=== PATIENT | male | born 1960 | race Caucasian/White ===

== ENCOUNTER → 2016-12-14 | Outpatient (CLI) | payer OTHER, MEDICARE ==
[~2016-12-14] MED LIST: AMMONIUM LACTA140 GM TP; ASPIRIN EC81 MG PO; BRILINTA90 MG PO; CARAFATE SU100 MG/ML PO; COQ-10100 MG PO; DIGOXIN250 MCG PO; FENOFIBRIC ACI135 MG PO; FLOMAX 0.4 MG0.4 MG PO; GLUCOVANCE 2.51 EACH PO; GLYBURIDE-METF1 EACH PO; HABITROL 21 MG P1 EA PO; IMDUR ER TAB 3030 MG PO; INVOKANA300 MG PO; KLOR-CON 1010 MEQ PO; LANSOPRAZOLE30 MG PO; MINITRAN1 EAC1 TD; NIACIN CR 500500 MG PO; NITROSTAT 0.40.4 MG SL; OMEGA 3 1,0001 EACH PO; PRALUENT SQ; RANEXA1000 MG PO; SPIRIVA RESPIMAT4 GM INH; TOPROL XL25 MG PO; TOPROL XL50 MG PO; VASCEPA1 GM PO; VITAMIN B-12100 MC1 PO; VITAMIN D 11000 UNIT PO; VITAMIN D2000 UNI1 PO; VITAMIN D2000 UNIT PO; VITAMIN D250000 UNIT PO; WELCHOL625 MG PO; ZOFRAN ODT 4 MG4 MG PO; [UNRECOGNIZED DRUG - OTHER] PO
== END ==
LOC: CT 15:00
DX: F17.210 Nicotine dependence, cigarettes, uncomplicated (principal); R91.8 Other nonspecific abnormal finding of lung field
CPT/HCPCS: G0297

== ENCOUNTER 2017-02-17 21:23 | Observation (INO) | payer OTHER, MEDICARE ==
[~2017-02-17] VITALS: Ht 180.3 cm; Wt 81.7 kg
[~2017-02-17 21:23] MED LIST changes: -COQ-10100 MG PO; -GLUCOVANCE 2.51 EACH PO; -IMDUR ER TAB 3030 MG PO; -PRALUENT SQ; -TOPROL XL25 MG PO; -VASCEPA1 GM PO; -VITAMIN D250000 UNIT PO
[2017-02-17 22:49] LABS: HEMOGLOBIN 16.6 gm/dl (14.0-17.5); RED BLOOD COUNT 5.34 M/UL (4.20-5.50)
[2017-02-18] MEDS ORDERED: IMDUR ER TAB 3030 MG PO (02:48)
[2017-02-18] MEDS ORDERED: VASCEPA1 GM PO (02:49)
[2017-02-18] MEDS ORDERED: WELCHOL625 MG PO (02:50)
[2017-02-18] MEDS ORDERED: COQ-10100 MG PO (03:00)
[2017-02-18] MEDS ORDERED: PRALUENT SQ (03:00)
[2017-02-19 06:15] LABS: BUN/CREATININE RATIO 20 (0-10)
[2017-02-19 06:24] LABS: HEMOGLOBIN 16.3 gm/dl (14.0-17.5); RED BLOOD COUNT 5.25 M/UL (4.20-5.50); WHITE BLOOD COUNT 6.5 K/UL (4.5-11.0)
[2017-06-17] MEDS ORDERED: IMDUR ER TAB 3030 MG PO ×2 (07:59→08:00)
[2017-06-17] MEDS ORDERED: GLUCOVANCE 2.51 EACH PO (08:02)
[2017-06-17] MEDS ORDERED: TOPROL XL25 MG PO (08:03)
[2017-06-17] MEDS ORDERED: VITAMIN D250000 UNIT PO (08:04)
== END 2017-02-19 09:30 | disposition home or self-care (01) ==
LOC: ER1 21:23 → ZEROF 23:52 → M/S 23:52
PROVIDERS: Internal Medicine; Physician Assistant; ADMIT Family Medicine
DX: R07.9 Chest pain, unspecified (principal); I25.10 Atherosclerotic heart disease of native coronary artery without angina pectoris; E78.5 Hyperlipidemia, unspecified; E78.1 Pure hyperglyceridemia; J44.9 Chronic obstructive pulmonary disease, unspecified; E11.9 Type 2 diabetes mellitus without complications; I25.2 Old myocardial infarction; E55.9 Vitamin D deficiency, unspecified; K21.9 Gastro-esophageal reflux disease without esophagitis; N40.0 Benign prostatic hyperplasia without lower urinary tract symptoms; I10 Essential (primary) hypertension; Z95.5 Presence of coronary angioplasty implant and graft; Z95.1 Presence of aortocoronary bypass graft; Z87.891 Personal history of nicotine dependence; Z79.82 Long term (current) use of aspirin; Z79.899 Other long term (current) drug therapy; Z90.49 Acquired absence of other specified parts of digestive tract; Z91.041 Radiographic dye allergy status; Z88.8 Allergy status to other drugs, medicaments and biological substances; Z88.6 Allergy status to analgesic agent
CPT/HCPCS: 36415; 71010; 78452; 80048; 80053; 80061; 80162; 82150; 82550; 82553; 82962; 83690; 83874; 83880; 84484; 85025; 85027; 93005; 93017; 99284; A9502; G0378; J2785

== ENCOUNTER → 2020-11-24 | Outpatient (CLI) | payer OTHER ==
[~2020-11-24] MED LIST changes: +COQ-10100 MG PO; +GLUCOVANCE 2.51 EACH PO; +IBUPROFEN200 MG PO; +IBUPROFEN600 MG PO; +IMDUR ER TAB 3030 MG PO; +IMDUR ER TAB 6060 MG PO; +LASIX40 MG PO; +LISINOPRIL5 MG PO; +LOPRESSOR 25 MG25 MG PO; +MACROBID 100 M100 MG PO; +NITRO-DUR1 EAC1 TOP; +PRALUENT SQ; +PREDNISONE 20 M20 MG PO; +PYRIDIUM200 MG PO; +TOPROL XL25 MG PO; +VASCEPA1 GM PO; +VITAMIN D250000 UNIT PO; +ZETIA10 MG PO
== END ==
LOC: KOH-I 11-14 15:30
DX: Z12.2 Encounter for screening for malignant neoplasm of respiratory organs (principal); F17.210 Nicotine dependence, cigarettes, uncomplicated; S22.32XA Fracture of one rib, left side, initial encounter for closed fracture; W00.9XXA Unspecified fall due to ice and snow, initial encounter
CPT/HCPCS: 71101; 71271

== ENCOUNTER → 2021-11-28 | Outpatient (CLI) | payer OTHER | LOC: KOH-I 13:20 | DX: F17.210 Nicotine dependence, cigarettes, uncomplicated (principal) | CPT/HCPCS: 71271 ==

== ENCOUNTER → 2022-01-17 | Day surgery (SDC) | payer OTHER ==
[~2022-01-17] MED LIST changes: +ENTRESTO 24 MG1 EACH PO; +FENOFIBRATE145 MG PO; +REPATHA SY140 MG/1 M SQ; +WEGOVY1 MG/0.5 M SQ
== END | disposition home or self-care (01) ==
LOC: OR 05:32
DX: Z12.11 Encounter for screening for malignant neoplasm of colon (principal); D12.4 Benign neoplasm of descending colon; N40.0 Benign prostatic hyperplasia without lower urinary tract symptoms; I25.10 Atherosclerotic heart disease of native coronary artery without angina pectoris; I21.09 ST elevation (STEMI) myocardial infarction involving other coronary artery of anterior wall; I50.23 Acute on chronic systolic (congestive) heart failure; E78.5 Hyperlipidemia, unspecified; J44.9 Chronic obstructive pulmonary disease, unspecified; E11.9 Type 2 diabetes mellitus without complications; Z87.891 Personal history of nicotine dependence; Z79.899 Other long term (current) drug therapy; Z79.82 Long term (current) use of aspirin; Z88.0 Allergy status to penicillin; Z88.1 Allergy status to other antibiotic agents; Z88.5 Allergy status to narcotic agent; Z88.8 Allergy status to other drugs, medicaments and biological substances; Z91.041 Radiographic dye allergy status
CPT/HCPCS: 82962; J2704; J7120